=== PATIENT | female | born 1970 | race Caucasian/White ===

== ENCOUNTER 2018-04-21 14:48 | Emergency (ER) | payer OTHER ==
[2018-04-21 15:06] VITALS: TEMP 98.7
--- NOTE | 2018-04-21 16:16 | ED PDOC ---
Lower Extremity Pain/Injury Time Seen by Provider: 04/21/18 15:17 Chief Complaint (Nursing): Lower Extremity Problem/Injury Chief Complaint (Provider): Lower Extremity Problem/Injury History Per: Patient History/Exam Limitations: no limitations Onset/Duration Of Symptoms: Days (1x) Current Symptoms Are (Timing): Still Present Severity: Moderate Additional Complaint(s): 47 year old female presents to the ED with complaints of right ankle injury that occurred this morning. Patient states she was walking on [place] when she tripped and twisted her right ankle. She sustained a bruise and swelling, and she took motrin and used ice afterwards with no relief. Patient reports having pain with ambulation. PMD: None provided Past Medical History Reviewed: Historical Data, Nursing Documentation, Vital Signs Vital Signs: Last Vital Signs Temp 98.7 F 04/21/18 15:04 Pulse 98 H 04/21/18 15:04 Resp 16 04/21/18 15:04 BP 174/98 H 04/21/18 15:04 Pulse Ox 98 04/21/18 15:04 - Medical History PMH: No Chronic Diseases - Surgical History Surgical History: No Surg Hx - Family History Family History: States: No Known Family Hx - Home Medications Home Medications: Ambulatory Orders Medication Instructions Recorded Ibuprofen [Motrin Tab] 800 mg PO Q6H PRN #20 tab 04/21/18 traMADol [Ultram] 50 mg PO Q6H PRN #15 tab 04/21/18 - Allergies Allergies/Adverse Reactions: Allergies Allergy/AdvReac Type Severity Reaction Status Date / Time No Known Allergies Allergy Verified 04/21/18 15:06 Review of Systems ROS Statement: Except As Marked, All Systems Reviewed And Found Negative Musculoskeletal: Positive for: Other (right ankle pain, swelling, bruising) Physical Exam - Reviewed Nursing Documentation Reviewed: Yes Vital Signs Reviewed: Yes - Physical Exam Appears: Positive for: Well, Non-toxic, No Acute Distress Head Exam: Positive for: ATRAUMATIC, NORMOCEPHALIC Skin: Positive for: Normal Color Extremity: Positive for: Tenderness (right lateral malleolus tenderness), Swelling (mild edema and ecchymosis of right ankle), Other (sensation intact, normal distal pulses) Neurologic/Psych: Positive for: Alert, Oriented (3x) - ECG O2 Sat by Pulse Oximetry: 98 (RA) Pulse Ox Interpretation: Normal - Radiology X-Ray: Interpreted by Me, Viewed By Me (see MDM note) Medical Decision Making Medical Decision Makin:17 Initial impression: 47 year old female with right ankle pain Initial plan: * XRay ankle right 3 views * reevaluation 17:18 XRay ankle right: right lateral malleolus fracture as read by ED PA Podiatry consult completed. Scribe Attestation: Documented by Zaira Cortez, acting as a scribe for Fatimah Drake PA-C. Provider Scribe Attestation: All medical record entries made by the Scribe were at my direction and personally dictated by me. I have reviewed the chart and agree that the record accurately reflects my personal performance of the history, physical exam, medical decision making, and the department course for this patient. I have also personally directed, reviewed, and agree with the discharge instructions and disposition. Disposition - Clinical Impression Clinical Impression: Ankle fracture - Patient ED Disposition Is Patient to be Admitted: No - Disposition Referrals: Jessika Scanlon DPM [Staff Provider] - Disposition: Routine/Home Disposition Time: 18:57 Condition: STABLE Prescriptions: Ibuprofen [Motrin Tab] 800 mg PO Q6H PRN #20 tab PRN Reason: Pain traMADol [Ultram] 50 mg PO Q6H PRN #15 tab PRN Reason: Pain Instructions: Ankle Fracture (DC) Forms: [employer] (Romanian)
--- NOTE | 2018-04-21 17:26 | RAD ---
Date of service: 04/21/2018 PROCEDURE: Right Ankle Radiographs. HISTORY: ankle pain, twisted COMPARISON: None available. FINDINGS: BONES: Avulsion fracture distal fibula. JOINTS: Normal. No osteoarthritis. Ankle mortise maintained. Talar dome intact SOFT TISSUES: Soft tissue swelling attests to the acuity of the fracture. OTHER FINDINGS: None. IMPRESSION: Acute fracture, avulsion type distal right fibula.
--- NOTE | 2018-04-21 18:23 | CP.PCM.PN ---
Subjective - Date & Time of Evaluation Date of Evaluation: 04/21/18 Time of Evaluation: 18:21 - Subjective Subjective: Podiatry Consult Note for Dr. Scanlon: 47 yo female patient, with no significant PMHx, seen and evaluated, in the ED for R ankle pain. Patient states that she had tripped on a [place] today and twisted her ankle which prompted her visit to the ED. Patient is able to weightbear however experiences significant pain. She denies any other pedal complaints. Denies N/V/F/SOB. PMHx: denies PSHx: L knee surgery All: NKDA SHx: Tobacco use Objective - Vital Signs/Intake and Output Vital Signs (last 24 hours): Temp Pulse Resp BP Pulse Ox 98.7 F 98 H 16 174/98 H 98 04/21/18 15:04 04/21/18 15:04 04/21/18 15:04 04/21/18 15:04 04/21/18 17:19 - Constitutional Appears: Well, Non-toxic, No Acute Distress - Head Exam Head Exam: ATRAUMATIC, NORMOCEPHALIC - Extremities Exam Additional comments: RLE focused exam: Vasc: DP/PT 2/4, CFT < 3 seconds, TG warm to warm, +2 edema noted to the R lateral mall Ortho: Tenderness upon palpation of lateral malleolus, pain upon eversion Neuro: Gross and protective sensation intact Derm: No open lesions, no erythema, no clinical signs of infection - Neurological Exam Neurological Exam: Alert, Awake, Oriented x3 Assessment and Plan - Assessment and Plan (Free Text) Assessment: 47 yo female patient, with no significant PMHx, seen and evaluated, in the ED for R lateral malleolar avulsion fracture Plan: Patient seen and evaluated with all questions and concerns addressed R x-rays reviewed; avulsion fracture distal R fibula Thank you for the consult
[2018-04-21 19:14] VITALS: BP 140/74; PULSE 78; RESP 18; O2SAT 97
--- NOTE | 2018-04-24 10:41 | CP.PCM.CON ---
History of Present Illness - History of Present Illness History of Present Illness: Podiatry Consult Note for Dr. Scanlon: 47 yo female patient, with no significant PMHx, seen and evaluated, in the ED for R ankle pain. Patient states that she had tripped on a [place] [address] today and twisted her ankle which prompted her visit to the ED. Patient is able to weightbear however experiences significant pain. She denies any other pedal complaints. Denies N/V/F/SOB. PMHx: denies PSHx: L knee surgery All: NKDA SHx: Tobacco use Review of Systems - Review of Systems Review of Systems: As per HPI Past Patient History - Infectious Disease Hx of Infectious Diseases: None - Past Social History Smoking Status: Current Some Days Smoker - PSYCHIATRIC Hx Substance Use: No Meds Home Medications: Home Medication List Medication Instructions Recorded Confirmed Type Ibuprofen [Motrin Tab] 800 mg PO Q6H PRN #20 tab 04/21/18 Rx traMADol [Ultram] 50 mg PO Q6H PRN #15 tab 04/21/18 Rx Allergies/Adverse Reactions: Allergies Allergy/AdvReac Type Severity Reaction Status Date / Time No Known Allergies Allergy Verified 04/21/18 15:06 Physical Exam - Constitutional Appears: Well, Non-toxic, No Acute Distress - Head Exam Head Exam: ATRAUMATIC, NORMOCEPHALIC - Extremities Exam Additional comments: RLE focused exam: Vasc: DP/PT 2/4, CFT < 3 seconds, TG warm to warm, +2 edema noted to the R lateral mall Ortho: Tenderness upon palpation of lateral malleolus, pain upon eversion Neuro: Gross and protective sensation intact Derm: No open lesions, no erythema, no clinical signs of infection - Neurological Exam Neurological exam: Alert, Oriented x3 - Psychiatric Exam Psychiatric exam: Normal Affect, Normal Mood Results - Vital Signs Recent Vital Signs: Last Vital Signs Temp 98.7 F 04/21/18 15:04 Pulse 78 04/21/18 19:12 Resp 18 04/21/18 19:12 BP 140/74 04/21/18 19:12 Pulse Ox 97 04/21/18 19:12 Assessment & Plan - Assessment and Plan (Free Text) Assessment: 47 yo female patient, with no significant PMHx, seen and evaluated, in the ED for R lateral malleolar avulsion fracture Plan: Patient seen and evaluated with all questions and concerns addressed R x-rays reviewed; avulsion fracture distal R fibula Patient placed in posterior split Advised to remain NWB to the RLE Advised to keep posterior splint C/D/I F/U with Dr. Scanlon in 1 week in office Thank you for the consult - Date & Time Date: 04/21/18 Time: 18:30
== END 2018-04-21 19:12 | disposition home or self-care (01) ==
LOC: H.ER 14:48
DX: S82.91XA Unspecified fracture of right lower leg, initial encounter for closed fracture (principal); W19.XXXA Unspecified fall, initial encounter; Y92.89 Other specified places as the place of occurrence of the external cause